=== PATIENT | male | born 1995 | race African-American/Black ===

== ENCOUNTER 2018-01-14 11:32 | Emergency (ER) | payer SELFPAY ==
[~2018-01-14] VITALS: Ht 170.2 cm; Wt 100.0 kg
[~2018-01-14 11:32] MED LIST: ACYC800T PO; CARB0.5D16 RIGHT EYE; MEDR4PAK3 PO; PROM25TA5 PO; PROT40TA PO; TYLE500T PO
[2018-01-14 11:35] VITALS: BP 135/64; PULSE 82; RESP 16; TEMP 97.9; O2SAT 100
== END 2018-01-14 19:33 | disposition left against medical advice (07) ==
LOC: NED 11:32
DX: R21 Rash and other nonspecific skin eruption (principal)